=== PATIENT | female | born 1980 | race Caucasian/White ===

== ENCOUNTER 2016-06-27 17:12 | Emergency (ER) | payer MEDICAID ==
[2016-06-27 17:16] VITALS: RESP 18
[2016-06-27] MEDS ORDERED: Sodium Chloride 0.9% 1,000 ML IV ONE (17:30)
[2016-06-27] MEDS ORDERED: Sodium Chloride 0.9% 1,000 ML ONE (17:46)
--- NOTE | 2016-06-27 17:56 | C.PDOC ---
History Of Present Illness <Mayte Juares - Last Filed: 06/27/16 19:10> <Cely Holm - Last Filed: 06/27/16 19:40> 35 y/o female c/o not feeling well since Wed; pt sts she has had multiple episodes of watery diarrhea, yellow in color, no blood seen, per day since Wed, and vomited on wed and thurs. pt denies fever and chills. no nausea now, pt is tolerating po fluids. pt took immodium today to stop bowel movements. pt has no abdominal pain at this time, c/o generalized weakness. no sick contacts. no recent travel. no cp , no sob, no urinary symptoms. (Mayte Juares) History Per: Patient History/Exam Limitations: no limitations Onset/Duration Of Symptoms: Days (4) Current Symptoms Are (Timing): Better <Mayte Juares - Last Filed: 06/27/16 19:10> <Cely Holm - Last Filed: 06/27/16 19:40> Time Seen by Provider: 06/27/16 17:23 Chief Complaint (Nursing): Abdominal Pain Past Medical History Reviewed: Historical Data, Nursing Documentation, Vital Signs - Medical History PMH: Asthma, HTN Denies: Diabetes, Hepatitis, HIV, Seizures, Sexually Transmitted Disease Surgical History: No Surg Hx Family History: States: [place], CAD - Social History Hx Tobacco Use: No Hx Alcohol Use: Yes Hx Substance Use: No - Immunization History Hx Tetanus Toxoid Vaccination: No Hx Influenza Vaccination: Yes Hx Pneumococcal Vaccination: No <Mayte Juares - Last Filed: 06/27/16 19:10> Review Of Systems Constitutional: Negative for: Fever, Chills Cardiovascular: Negative for: Chest Pain Respiratory: Negative for: Cough, Shortness of Breath Gastrointestinal: Positive for: Nausea, Vomiting, Abdominal Pain, Diarrhea. Negative for: Constipation Genitourinary: Negative for: Dysuria, Frequency, Incontinence, Vaginal Discharge , Vaginal Bleeding Skin: Negative for: Rash Neurological: Negative for: Weakness, Numbness <Mayte Juares - Last Filed: 06/27/16 19:10> Physical Exam - Physical Exam Appears: Non-toxic, No Acute Distress Skin: Warm, Dry Head: Atraumatic, Normacephalic Oral Mucosa: Dry (mild) Chest: Symmetrical, No Deformity Cardiovascular: Rhythm Regular, No Murmur Respiratory: Normal Breath Sounds, No Rhonchi, No Stridor, No Wheezing Gastrointestinal/Abdominal: Bowel Sounds, Soft, No Tenderness (obese) <Mayte Juares - Last Filed: 06/27/16 19:10> ED Course And Treatment - Laboratory Results Result Diagrams: 06/27/16 18:04 06/27/16 18:04 O2 Sat by Pulse Oximetry: 99 <Mayte Juares - Last Filed: 06/27/16 19:10> - Laboratory Results Result Diagrams: 06/27/16 18:04 06/27/16 18:04 Lab Interpretation: No Acute Changes Pulse Ox Interpretation: Normal Reevaluation Time: 19:38 Reassessment Condition: Improved (Patient appears well hydrated.) <Cely Holm - Last Filed: 06/27/16 19:40> Disposition - Disposition Disposition Time: 19:10 <Mayte Juares - Last Filed: 06/27/16 19:10> - Disposition Disposition Time: 19:38 <Cely Holm - Last Filed: 06/27/16 19:40> - Disposition Disposition: HOME/ ROUTINE Condition: IMPROVED Instructions: Acute Diarrhea (ED) - Clinical Impression Clinical Impression: Diarrhea Physician Patient Turnover Patient Signed Over To: Cely Holm Handoff Comments: f/u ua and upreg,. d/c if normal <Mayte Juares - Last Filed: 06/27/16 19:10>
[2016-06-27 18:11] LABS: BASO % 0.2 % (0.0-2.0); EOS # 0.1 K/uL (0.0-0.7); EOS % 1.3 % (0.0-4.0); HEMATOCRIT 41.8 % (34.0-47.0); LYMPH # 2.9 K/uL (1.0-4.3); MEAN CELL VOLUME 88.7 fL (81.0-99.0); MEAN CORPUSCULAR HEMOGLOBIN 29.3 pg (27.0-31.0); MEAN CORPUSCULAR HGB CONC 33.1 g/dL (33.0-37.0); MEAN PLATELET VOLUME 8.8 fL (7.2-11.7); MONO # 0.7 K/uL (0.0-0.8); MONO % 9.4 % (0.0-10.0); RED CELL DISTRIBUTION WIDTH 14.6 % (11.5-14.5); WHITE BLOOD COUNT 7.1 K/uL (4.8-10.8)
[2016-06-27 18:19] LABS: CHLORIDE 97 mmol/L (98-107); POTASSIUM 3.4 mmol/L (3.6-5.2); SODIUM 137 mmol/L (132-148)
[2016-06-27 18:21] LABS: BILIRUBIN,TOTAL 0.6 mg/dL (0.2-1.3); CARBON DIOXIDE 27 mmol/L (22-30); GFR AFRICAN-AMERICAN > 60
[2016-06-27 18:22] LABS: ALB/GLOB RATIO 1.1 (1.0-2.1); ALKALINE PHOSPHATASE 61 U/L (38-126); ALT/SGPT 49 U/L (9-52); AST/SGOT 48 U/L (14-36); BLOOD UREA NITROGEN 6 mg/dL (7-17); CALCIUM 8.3 mg/dl (8.6-10.4); GLUCOSE,RANDOM 90 mg/dL (65-105); TOTAL PROTEIN 8.1 g/dL (6.3-8.3)
[2016-06-27] MEDS ORDERED: Potassium Chloride 20 mEq/15 ml LIQ UD PO STA (18:45)
[2016-06-27 19:11] LABS: URINE BACTERIA RARE (<OCC); URINE BILIRUBIN NEGATIVE (NEGATIVE); URINE BLOOD NEGATIVE (NEGATIVE); URINE COLOR Colorless (YELLOW); URINE GLUCOSE (UA) NORMAL (Normal); URINE KETONE TRACE mg/dL (NEGATIVE); URINE LEUKOCYTE ESTERASE NEG Leu/uL (Negative); URINE PROTEIN NEGATIVE (NEGATIVE); URINE UROBILINOGEN NORMAL mg/dL (0.2-1.0)
[2016-06-27 19:28] VITALS: BP 135/83; PULSE 89; TEMP 98.5; O2SAT 96
[2016-06-27] MEDS ORDERED: Potassium Chloride 20 mEq/15 ml LIQ UD ONE (19:41)
== END 2016-06-27 19:50 | disposition home or self-care (01) ==
LOC: C.ER 17:12
DX: R19.7 Diarrhea, unspecified (principal)
CPT/HCPCS: 80053; 81001; 83690; 85025; 96361; 96374; 96375; 99285; J2405; J7040